=== PATIENT | male | born 1975 ===

== ENCOUNTER 2018-10-13 06:53 | Inpatient (IN) | payer OTHER ==
[2018-10-10 13:05] VITALS: BMI 26.2
[2018-10-13] MEDS ORDERED: Propofol 10 mg/ml Inj (20 ML) ONE ×2 (07:18→10:26)
[2018-10-13] MEDS ORDERED: ePHEDrine 50 mg/ml Inj ONE (07:18)
[2018-10-13] MEDS ORDERED: Midazolam 2 MG/2 ML VIAL ONE (07:18)
[2018-10-13] MEDS ORDERED: Rocuronium 10 mg/ml (5 ml) ONE ×2 (07:18→08:51)
[2018-10-13] MEDS ORDERED: Lidocaine 4% (Laryng-O-Jet) Kit MM ONE (07:18)
[2018-10-13] MEDS ORDERED: Succinylcholine 200 mg/10 ml Inj IV ONE (07:23)
[2018-10-13] MEDS ORDERED: Bupivacaine HCl 0.5% PF (30 ml) Inj ONE (07:40)
[2018-10-13] MEDS ORDERED: Absorbable Gelatin Sponge Size 12-7 ONE (07:40)
[2018-10-13] MEDS ORDERED: Lidocaine 1% w Epi 1:100,000 Inj ONE (07:40)
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
[2018-10-13] MEDS ORDERED: Thrombin Topical 5,000 Int Units Spray Kit ONE (07:41)
[2018-10-13] MEDS ORDERED: Lactated Ringer's 1,000 ML IV ONE ×2 (07:54→10:30)
[2018-10-13] MEDS ORDERED: Lidocaine 1% w Epi 1:100,000 Inj INJ ONE (08:20)
[2018-10-13] MEDS ORDERED: Dexamethasone 4 mg/1 ml ONE (08:34)
[2018-10-13] MEDS ORDERED: Desflurane Inhalation Anesthetic Liq (240 ml) ONE (10:00)
[2018-10-13] MEDS ORDERED: Neostigmine 1:1000 (1 mg/ml) Inj ONE (10:04)
[2018-10-13] MEDS ORDERED: HEMOSTATIC MATRIX 10 ML DIS.NEEDLE TOP ONE (10:20)
[2018-10-13] MEDS ORDERED: Bupivacaine 0.5% Inj(30mL) IJ ONE (10:25)
--- NOTE | 2018-10-13 10:43 | PCM.SURG1 ---
Surgeon's Initial Post Op Note - Surgeon's Notes Surgeon: Burt Hicks MD Warehouse Forklift Operator: Lokesh Cui PA-C Type of Anesthesia: General Endo Anesthesia Administered By: Ney Carl Pre-Operative Diagnosis: Lumbar disc herniation Operative Findings: see complete operative report Post-Operative Diagnosis: Lumbar disc herniation L5-S1 Operation Performed: Lumbar laminectomy and fusion L5-S1 Specimen/Specimens Removed: None Estimated Blood Loss: EBL {In ML}: 50 Blood Products Given: N/A Drains Used: Donis Morejon (x 2 bilateral back) Post-Op Condition: Good Date of Surgery/Procedure: 10/13/18 Time of Surgery/Procedure: 08:20
[2018-10-13] MEDS ORDERED: Oxycodone/Acetaminophen 5/325 mg Tab PO PRN (10:44)
[2018-10-13] MEDS ORDERED: Lactated Ringer's 1,000 ML IV SCH ×2 (10:45→11:00)
[2018-10-13] MEDS ORDERED: HYDROmorphone 0.5 mg/0.5 ml ISec IVP PRN (10:56)
--- NOTE | 2018-10-13 14:04 | RAD ---
Date of service: 10/13/2018 PROCEDURE: Fluoroscopic assistance in excess of 1 hour. HISTORY: PLIF COMPARISON: None TECHNIQUE: Standard protocol for this study/examination. FINDINGS: Total fluoroscopic time (continuous mode) utilized during the procedure 63.8 seconds. Total exam DLP: 38.01 (mGy). IMPRESSION: Submitted images from the current procedure: 2.0.
[2018-10-13] MEDS: ceFAZolin 2 GM in Sodium Chloride 0.9% 100 ML IVPB SCH (17:29)
[2018-10-13] MEDS: Docusate-Senna 50 mg-8.6 mg Tab PO SCH (21:21)
[2018-10-13] MEDS: Oxycodone/Acetaminophen 5/325 mg Tab PO PRN (22:33)
[2018-10-14] MEDS: ceFAZolin 2 GM in Sodium Chloride 0.9% 100 ML IVPB SCH (00:01)
--- NOTE | 2018-10-14 00:33 | OP ---
PROCEDURE DATE: 10/13/2018 PREOPERATIVE DIAGNOSIS: Lumbar herniated disk at L5-S1. POSTOPERATIVE DIAGNOSIS: Lumbar herniated disk at L5-S1. PROCEDURE: L5-S1 laminectomy, L5-S1 pedicle screw fixation and instrumentation using spinal elements, L5-S1 posterolateral fusion. Fluoroscopy has been used. Microscope has been used. SURGEON: Burt Hicks MD CAP SIZER: Lokesh Cui, physician railway yard assistant, who helped me perform the surgery, stayed throughout the case. DESCRIPTION OF PROCEDURE: The patient was brought to the operating room and anesthetized with general endotracheal anesthesia and placed in a prone position on Donis table. Care was taken to protect all pressure points. Back of the lumbar area was thoroughly prepped and draped in the same sterile manner after marking the skin incision for lumbar laminectomy at L5-S1. After prepping, skin has been incised. Bleeding skin has been controlled with bipolar clinical pharmacy technician. Using a Bovie clinical pharmacy technician, paraspinal muscles had been detached, attachments of spinous process, lamina from L5 to S1. Deep retractor has been applied. Identification of the levels has been done with the help of fluoroscopy. At this point, by using a traditional landmark, point of entry has been noted for pedicles at L5-S1. Initially, a K-wire and later a drill has been used in order to enter the pedicles of L5-S1. Polyaxial titanium screws of spinal elements system has been placed. Titanium rods have been placed. Cap nuts have been used in order to secure them. After magnification, this spinous process from L5 and S1 have been removed. By using a high-speed drill, the lamina at L5-S1 and medial part of the L5-S1 have been drilled. By using a fine Kerrison punch, thinned bone at L5 along with the ligamentum flavum has been removed. Disk space has been examined. There was herniated disk noted but no extrusion noted. Foraminotomy was performed. After that, lateral aspect of the facet joints and transverse process have been decorticated. Demineralized bone placed in the area achieving a posterolateral fusion. After that hemostasis was best achieved. Donis drain was placed on the wound and brought out through a separate stab neck skin incision. Muscles and fascia were closed with 1-Vicryl, subcutaneous tissue with 3-0 Vicryl, skin has been done with intradermal stitches. The patient tolerated the procedure. After the procedure, mobilized to the recovery room in stable condition. Burt Hicks MD
[2018-10-14 06:15] LABS: HEMOGLOBIN 13.6 g/dL (12.0-18.0); MEAN CELL VOLUME 83.7 fl (80.0-94.0); MEAN CORPUSCULAR HEMOGLOBIN 28.1 pg (27.0-31.0); MEAN CORPUSCULAR HGB CONC 33.6 g/dL (33.0-37.0); RBC 4.85 Mil/uL (4.40-5.90); RED CELL DISTRIBUTION WIDTH 13.4 % (11.5-14.5); WHITE BLOOD COUNT 12.3 K/uL (4.8-10.8)
[2018-10-14 06:28] LABS: BLOOD UREA NITROGEN 14 mg/dl (9-20); CALCIUM 8.7 mg/dL (8.4-10.2); GFR NON-AFRICAN AMERICAN > 60
--- NOTE | 2018-10-14 08:59 | CP.PCM.PN ---
Subjective - Date & Time of Evaluation Date of Evaluation: 10/14/18 Time of Evaluation: 07:30 - Subjective Subjective: Patient seen and examined at bedside. Pain is well controlled this AM, moderate pain overnight. Notes that preop lumbar pain has resolved. Unable to be OOB yesterday due to dizziness from anesthesia. No other complaints. Denies CP/SOB/fever. Objective - Vital Signs/Intake and Output Vital Signs (last 24 hours): Temp Pulse Resp BP Pulse Ox 98.4 F 87 18 100/60 93 L 10/14/18 08:13 10/14/18 08:13 10/14/18 08:13 10/14/18 08:13 10/14/18 08:13 Intake and Output: 10/14/18 10/14/18 06:59 18:59 Output Total 235 Balance -235 - Medications Medications: Current Medications Acetaminophen (Tylenol 325mg Tab) 650 mg PO Q4 PRN PRN Reason: Fever 101 degrees fahrenheit Cyclobenzaprine HCl (Flexeril) 10 mg PO Q8 PRN PRN Reason: Muscle spasm Dexamethasone 4 mg/ Sodium (Chloride) 51 mls @ 51 mls/hr IVPB Q8 [facility] Morphine Sulfate (Morphine) 2 mg IVP Q4 PRN PRN Reason: Pain, severe (8-10) Last Admin: 10/14/18 07:59 Dose: 2 mg Ondansetron HCl (Zofran Inj) 4 mg IVP Q4 PRN PRN Reason: Nausea/Vomiting Last Admin: 10/13/18 18:22 Dose: 4 mg Oxycodone/Acetaminophen (Percocet 5/325 Mg Tab) 1 tab PO Q4 PRN PRN Reason: Pain, Mild (1-3) Stop: 10/16/18 10:45 Oxycodone/Acetaminophen (Percocet 5/325 Mg Tab) 2 tab PO Q4 PRN PRN Reason: Pain, moderate (4-7) Stop: 10/16/18 10:45 Last Admin: 10/13/18 22:33 Dose: 2 tab Senna/Docusate Sodium (Senokot S 50 Mg-8.6 Mg) 2 tab PO HS [facility]ETH Last Admin: 10/13/18 21:21 Dose: Not Given - Labs Labs: 10/14/18 05:35 10/14/18 05:35 - Back Exam Additional comments: Abd binder in place Dressings intact with mild sanguineous drainage from drain sites YURIY drains intact with moderate serosang drainage mild florentin wound tenderness neg clonus Assessment and Plan (1) Lumbar disc herniation Assessment & Plan: POD#1 s/p L5-S1 laminectomy and fusion -maintain drains, monitor output, possible removal tomorrow -PT/OT -abd binder -encourage OOB -neurosurgically stable -d/w Dr. Hicks who agrees with above Status: Acute
[2018-10-14] MEDS ORDERED: Dexamethasone 4 MG in Sodium Chloride 0.9% 50 ML IVPB SCH (09:00)
[2018-10-14] MEDS: Dexamethasone 4 mg/1 ml IVP SCH ×2 (10:00→17:10)
[2018-10-14] MEDS: Oxycodone/Acetaminophen 5/325 mg Tab PO PRN (21:25)
[2018-10-14] MEDS: Docusate-Senna 50 mg-8.6 mg Tab PO SCH (21:28)
[2018-10-15] MEDS: Dexamethasone 4 mg/1 ml IVP SCH ×3 (00:24→17:32)
[2018-10-15 06:25] LABS: HEMOGLOBIN 14.2 g/dL (12.0-18.0); MEAN CELL VOLUME 84.3 fl (80.0-94.0); MEAN CORPUSCULAR HEMOGLOBIN 28.6 pg (27.0-31.0); MEAN CORPUSCULAR HGB CONC 33.9 g/dL (33.0-37.0); RBC 4.98 Mil/uL (4.40-5.90); RED CELL DISTRIBUTION WIDTH 13.4 % (11.5-14.5); WHITE BLOOD COUNT 12.1 K/uL (4.8-10.8)
[2018-10-15 06:40] LABS: BLOOD UREA NITROGEN 15 mg/dl (9-20); CALCIUM 9.2 mg/dL (8.4-10.2); GFR NON-AFRICAN AMERICAN > 60
--- NOTE | 2018-10-15 12:19 | CP.PCM.PN ---
Subjective - Date & Time of Evaluation Date of Evaluation: 10/15/18 Time of Evaluation: 12:17 - Subjective Subjective: Patient states he is getting better, pain is moderate but controlled. Denies BM. Good appetite. Objective - Vital Signs/Intake and Output Vital Signs (last 24 hours): Temp Pulse Resp BP Pulse Ox 98.4 F 82 20 116/76 94 L 10/15/18 08:07 10/15/18 08:07 10/15/18 08:07 10/15/18 08:07 10/15/18 08:07 Intake and Output: 10/15/18 10/15/18 06:59 18:59 Output Total 85 Balance -85 - Medications Medications: Current Medications Acetaminophen (Tylenol 325mg Tab) 650 mg PO Q4 PRN PRN Reason: Fever 101 degrees fahrenheit Cyclobenzaprine HCl (Flexeril) 10 mg PO Q8 PRN PRN Reason: Muscle spasm Dexamethasone (Decadron Inj) 4 mg IVP Q8 EL[facility]ETH Last Admin: 10/15/18 08:47 Dose: 4 mg Morphine Sulfate (Morphine) 2 mg IVP Q4 PRN PRN Reason: Pain, severe (8-10) Last Admin: 10/15/18 07:43 Dose: 2 mg Ondansetron HCl (Zofran Inj) 4 mg IVP Q4 PRN PRN Reason: Nausea/Vomiting Last Admin: 10/14/18 09:50 Dose: 4 mg Oxycodone/Acetaminophen (Percocet 5/325 Mg Tab) 1 tab PO Q4 PRN PRN Reason: Pain, Mild (1-3) Stop: 10/16/18 10:45 Oxycodone/Acetaminophen (Percocet 5/325 Mg Tab) 2 tab PO Q4 PRN PRN Reason: Pain, moderate (4-7) Stop: 10/16/18 10:45 Last Admin: 10/14/18 21:25 Dose: 2 tab Senna/Docusate Sodium (Senokot S 50 Mg-8.6 Mg) 2 tab PO [facility] Last Admin: 10/14/18 21:28 Dose: 2 tab - Labs Labs: 10/15/18 05:55 10/15/18 05:55 - Back Exam Additional comments: L 70cc YURIY, R 120 YURIY Patient walking around, NAD +ROM ankle/toes, sensation intact calves soft NT neg homans Assessment and Plan (1) Lumbar disc herniation Assessment & Plan: POD#2 s/p L5/s1 laminectomy and fusion keep YURIY drains per Dr. Hicks cont PT/OT ancef d/c planning after drains removed encourage OOB/ambulation d/w Dr. Hicks, agrees with above Status: Acute
[2018-10-15] MEDS: Oxycodone/Acetaminophen 5/325 mg Tab PO PRN (21:45)
[2018-10-15] MEDS: Docusate-Senna 50 mg-8.6 mg Tab PO SCH (21:46)
[2018-10-16] MEDS: Dexamethasone 4 mg/1 ml IVP SCH ×2 (01:41→08:39)
[2018-10-16 07:58] VITALS: BP 115/74; PULSE 84; RESP 20; TEMP 98.5; O2SAT 93
[2018-10-16] MEDS ORDERED: ceFAZolin 2 GM in Sodium Chloride 0.9% 100 ML IVPB SCH (09:45)
--- NOTE | 2018-10-16 09:57 | CP.PCM.PN ---
Subjective - Date & Time of Evaluation Date of Evaluation: 10/16/18 Time of Evaluation: 09:55 - Subjective Subjective: Patient states he feels better today. He has been walking around with minimal pain. Denies CP/SOB/dizziness/numbness/tingling. Tolerating diet, +voiding Objective - Vital Signs/Intake and Output Vital Signs (last 24 hours): Temp Pulse Resp BP Pulse Ox 98.5 F 84 20 115/74 93 L 10/16/18 07:58 10/16/18 07:58 10/16/18 07:58 10/16/18 07:58 10/16/18 07:58 Intake and Output: 10/16/18 10/16/18 06:59 18:59 Output Total 25 Balance -25 - Medications Medications: Current Medications Acetaminophen (Tylenol 325mg Tab) 650 mg PO Q4 PRN PRN Reason: Fever 101 degrees fahrenheit Cyclobenzaprine HCl (Flexeril) 10 mg PO Q8 PRN PRN Reason: Muscle spasm Dexamethasone (Decadron) 4 mg PO Q12 [facility] Cefazolin Sodium 2 gm/ Sodium (Chloride) 100 mls @ 100 mls/hr IVPB Q8 [facility]ABETH; Protocol Morphine Sulfate (Morphine) 2 mg IVP Q4 PRN PRN Reason: Pain, severe (8-10) Last Admin: 10/15/18 07:43 Dose: 2 mg Ondansetron HCl (Zofran Inj) 4 mg IVP Q4 PRN PRN Reason: Nausea/Vomiting Last Admin: 10/14/18 09:50 Dose: 4 mg Oxycodone/Acetaminophen (Percocet 5/325 Mg Tab) 1 tab PO Q4 PRN PRN Reason: Pain, Mild (1-3) Stop: 10/16/18 10:45 Oxycodone/Acetaminophen (Percocet 5/325 Mg Tab) 2 tab PO Q4 PRN PRN Reason: Pain, moderate (4-7) Stop: 10/16/18 10:45 Last Admin: 10/15/18 21:45 Dose: 2 tab Senna/Docusate Sodium (Senokot S 50 Mg-8.6 Mg) 2 tab PO HS ELIZABETH Last Admin: 10/15/18 21:46 Dose: 2 tab - Labs Labs: 10/15/18 05:55 10/15/18 05:55 - Back Exam Additional comments: YURIY 30 and 65, pulled incision intact, dry, no erythema. dressing applied to drain sites, clean +ROM ankle/toes/knee hips flex/ext 5/5 sensation intact L2-S1 calves soft NT neg homans Assessment and Plan (1) Lumbar disc herniation Assessment & Plan: POD#3 s/p L5/s1 laminectomy and fusion YURIY drains pulled per Dr. Hicks cont PT/OT ancef d/c d/c home today encourage OOB/ambulation f/u 2 weeks call for appt keep incision site clean and dry d/w Dr. Hicks, agrees with above Status: Acute
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
--- NOTE | 2018-10-16 17:58 | CP.PCM.PN ---
Subjective - Date & Time of Evaluation Date of Evaluation: 10/15/18 Time of Evaluation: 11:00 - Subjective Subjective: patient seen and examined at bedside. Interim events noted No complaints offered at this time denies cp/sob/fever/chills. available diagnostic data reviewed Review of Systems All systems: reviewed and no additional remarkable complaints except mentioned above Objective Vital Signs Stable - Constitutional Appears: Non-toxic, No Acute Distress Head Exam: NORMAL INSPECTION Eye Exam: Normal appearance Respiratory Exam: NORMAL BREATHING PATTERN Cardiovascular Exam: +S1, +S2 GI & Abdominal Exam: Soft Neurological Exam: Alert, Awake Psychiatric exam: Normal Affect, Normal Mood Skin Exam: Normal Color, Warm Assessment and Plan monitor vitals monitor labs Cont meds Cont tx consultants appreciated input rest of plan as ordered Objective - Vital Signs/Intake and Output Vital Signs (last 24 hours): Temp Pulse Resp BP Pulse Ox 98.5 F 84 20 115/74 93 L 10/16/18 07:58 10/16/18 07:58 10/16/18 07:58 10/16/18 07:58 10/16/18 07:58 Intake and Output: 10/16/18 10/16/18 06:59 18:59 Output Total 25 25 Balance -25 -25 - Labs Labs: 10/15/18 05:55 10/15/18 05:55 Assessment and Plan (1) Lumbar disc herniation Status: Acute
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
== END 2018-10-16 13:46 | disposition home or self-care (01) | DRG 460 ==
LOC: H.OPSURG 06:53 → H.MEDSURG1 10:44
PROVIDERS: ADMIT Family Medicine; ATTEND Family Medicine
PROC: 0SG30K1 Fusion of Lumbosacral Joint with Nonautologous Tissue Substitute, Posterior Approach, Posterior Column, Open Approach (ICD-10-PCS; principal; 2018-10-13 07:45)
DX: M51.27 Other intervertebral disc displacement, lumbosacral region (principal)